=== PATIENT | female | born 1955 ===

== ENCOUNTER → 2022-10-13 11:15 | Outpatient (CLI) | payer MEDICARE, SELFPAY ==
--- NOTE | ~2022-10-13 | MR_ITS ---
EXAMINATION: MR lower leg RT wo con DATE: 10/13/2022 12:45 INDICATION: Right lower leg injury TECHNIQUE: Magnetic resonance imaging (MRI) of the right lower leg was performed without intravenous contrast. A marker was placed over the mass. Sequences included axial, sagittal and coronal T1-weigh zhen FSE and fluid sensitive FSE STIR were obtained. Contralateral left lower limb is included on the coronal imaging. COMPARISON: None. FINDINGS: Feathery intramuscular edema as well as epimysial edema at the periphery of the proximal medial head of the gastrocnemius muscle without discrete structure muscle or tendon defect consistent with low-gr vijay strain. Remaining musculature is normal. Bone alignment is normal. Normal marrow signal throughou t with no fracture or pathologic marrow replacing process. No knee or ankle joint effusions. IMPRESSION: 1. Low-grade muscle strain of the proximal medial head of the right gastrocnemius muscle. Reviewed, dictated and finalized at location B. IMPRESSION: 1. Low-grade muscle strain of the proximal medial head of the right gastrocnemi us muscle.
== END ==
PROVIDERS: PCP Internal Medicine; Visit Provider Orthopaedic Surgery
DX: S86.811A Strain of other muscle(s) and tendon(s) at lower leg level, right leg, initial encounter (principal); X58.XXXA Exposure to other specified factors, initial encounter
CPT/HCPCS: 73718